=== PATIENT | male | born 1995 | race Caucasian/White ===

== ENCOUNTER 2018-10-04 16:13 | Emergency (ER) | payer OTHER ==
[2018-10-04] MEDS: IBUPROFEN 600 MG TAB PO (18:07)
== END 2018-10-04 18:37 | disposition home or self-care (01) ==
LOC: FTE 16:13
DX: S39.92XA Unspecified injury of lower back, initial encounter (principal); V87.7XXA Person injured in collision between other specified motor vehicles (traffic), initial encounter
CPT/HCPCS: 72040; 72100; 99283-25